=== PATIENT | female | born 1985 | race Caucasian/White ===

== ENCOUNTER 2025-07-11 09:29 | Outpatient (CLI) | payer OTHER, SELFPAY ==
--- NOTE | 2025-07-11 09:36 | ECG_ITS ---
Test Date: 2025-07-11 09:40:32 Measurements Intervals [place] Rate: 80 P: 77 MT: 131 QRS: 83 QRSD: 96 T: 80 QT: 366 QTc: 424 Interpretive Statements SINUS RHYTHM WITH SINUS ARRHYTHMIA INCOMPLETE RIGHT BUNDLE BRANCH BLOCK BASELINE ARTIFACT- II, III, V4-V6 BORDERLINE ECG No previous ECG available for comparison Electronically Signed On 07-11-2025 10:10:15 CDT by Fernando Rodriguez D.O.
== END 2025-07-11 09:30 | disposition home or self-care (01) ==
LOC: ANHSURGERY 09:34
PROVIDERS: Visit Provider Obstetrics & Gynecology
DX: R94.31 Abnormal electrocardiogram [ECG] [EKG] (principal); Z87.891 Personal history of nicotine dependence
CPT/HCPCS: 93005

== ENCOUNTER 2025-07-16 00:37 | Day surgery (SDC) | payer OTHER, SELFPAY ==
[2025-07-09 11:31] VITALS: BMI 19.6
--- NOTE | 2025-07-09 11:35 | SUR.PREOP ---
[facility] has started construction of its new state of the art ER which will open Spring 2026. With this, we anticipate parking may be a challenge for some our surgical patients and families. Parking spaces are limited but are available for all Surgical, obstetrics, and ER patients sharing this lot. If you arrive and find you are having a hard time finding a parking space, please note that we understand the challenges, please drive around the hospital and park near Hospital Entrance 1. When you enter this entrance, you can ask a volunteer to direct or take you back to the surgical waiting area to check in. We appreciate everyone?s understanding of these expected challenges while we build for your future. Report to the Outpatient Waiting Room, entrance under the green pavilion located off [address], at time _6am on date _07/16/25 . Planned Procedure Time: _730am__.? Time changes happen often and if your time is changed the preop area will call you the afternoon before. - You and your visitor will be asked to self-screen and do not enter if you have any COVID symptoms. Please call surgeon if you need to reschedule. - A mask is optional within the hospital at this time. Patients may have clear liquids (water, carbonated beverages, clear teas, apple juice) until 3 hours prior to surgery with a maximum of 20 ounces. - No food from midnight until time of surgery and no smoking, or chewing tobacco (or any form of nicotine). No chewing gum, candy or mints. Take only the following medications with a SIP of water on the morning of surgery: ____None___ DO NOT STOP ANY OF YOUR OTHER PRESCRIPTION MEDICATIONS PRIOR TO SURGERY EXCEPT THE FOLLOWING Hold all vitamins and supplements for 3 days per anesthesiologist. Medications to discontinue per physician ___Hold Tirzepatite for 10 days prior- last dose 06/29/25_. Date to take last dose of vitamins is 07/12/25. Please no make-up, nail greenlandic, hairspray, perfume, deodorant, or body powder the day of surgery.? No jewelry (including any body piercings) or valuables the day of surgery, leave them at home.? Please take a shower or bath the night before, or the morning of, surgery with an antibacterial soap.? Wear comfortable, loose fitting clothing.? Children are encouraged to wear pajamas. - Jewelry must be removed prior to entering the operating room.? Rings and piercings that are not removed may be cut off. - The hospital will not accept responsibility for valuables.? - Please leave all valuables, including medications, at home the day of surgery. If you are going home after surgery, a licensed ross carrier driver must drive you home.? - NO public transportation without another adult if you receive anesthesia. - We recommend that an adult stay with you for 24 hours following discharge. - We also recommend that you do not drive, make important decision, drink alcoholic beverages, or take any drugs that were not prescribed by your health care provider for at least 24 hours after your discharge time. Follow any additional instructions given to you from your surgeon. Telephone instructions given to Kimberly and asked if any additional questions and then verbalized understanding. Patient advised to call surgeon office or pre surgery nurse liaison [phone] if any additional questions.
[2025-07-16] VITALS (11 sets, daily range): BP systolic 95–127; BP diastolic 49–86; PULSE 60–90; RESP 13–20; TEMP 36.3–36.7; O2SAT 99–100
--- OUTSIDE RECORDS SUMMARY | 2025-07-16 00:41 | XMS_ITS | Data Portability ---
Author Organization [facility] [place] Address [address] [place] [address] Assessment No assessment recorded. Plan of Treatment Reminders Order Date Submit Date Provider Last Modified By Organization Details Last Modified Time Details Appointments SURG Diagnosti c Lap 2024 07:30A Celsa LAMB MD Not available Not available Not available Lab CBC w/ auto diff 2024 025 [facility] (Lab), [address], [place], [address], 12/26/2024 15:23:45 CMP, serum or plasma 2024 025 [facility] (Lab), [address], [place], [address], 12/26/2024 15:23:46 lipid panel, blood 2024 025 [facility] (Lab), [address], [place], [address], 12/26/2024 15:23:46 TSH, serum or plasma 2024 025 [facility] (Lab), [address], [place], [address], 12/26/2024 15:23:47 25-hydrox yvitamin D2 + 25-hydrox yvitamin D3, QN, serum or plasma 2024 025 [facility] (Lab), [address], [place], [address], 12/26/2024 15:23:49 dhea-sulf ate, serum 2024 025 [facility] (Lab), [address], [place], [address], 12/26/2024 15:23:46 estradiol , serum 2024 025 [facility] (Lab), [address], [place], [address], 12/26/2024 15:23:47 FSH (follicle -stimulat ing hormone), serum 2024 025 [facility] (Lab), [address] [place], [address], 12/26/2024 15:23:49 lh (luteiniz ing hormone), serum 2024 025 [facility] (Lab), [address], [place], [address], 12/26/2024 15:23:48 progester one, serum 2024 025 [facility] (Lab), [address], [place], [address], 12/26/2024 15:23:48 prolactin , serum 2024 025 [facility] (Lab), [address] [place], [address], 12/26/2024 15:23:48 shbg (sex hormone-b inding globulin) , serum 2024 025 [facility] (Lab), [address] [place], [address], 12/26/2024 15:23:47 testoster one free/test osterone total, ratio, serum 2024 025 [facility] (Lab), [address], [place], [address], 12/26/2024 15:23:49 test, urine 2024 025 [facility], [address], [address], [place], [address], 12/23/2024 22:16:54 Referral None recorded. Procedures None recorded. Surgeries laparosco py, diagnosti c (SURG) 2024 025 [id number], [address], [place], [address], 06/11/2025 09:24:33 Imaging US, pelvis 2024 [address]25 [address], [address], [place], [address], 12/15/2024 10:55:25 US, transvagi nal 2024 025 [address], [address], [place], [address], 12/15/2024 10:55:25 US, pelvis, complete 2024 [address], [address], [place], [address], 12/25/2024 15:36:17 MAMMO, screening , digital, bilateral 2024 025 [facility], [address], [facility], [place], [address], 04/11/2025 04:01:56 US, pelvis [address], [address], [place], [address], 10/25/2023 21:05:54 US, transvagi nal 2023 024 [email or web address] [place], [address], [address], [place], [address], 10/25/2023 21:05:54 Medication Orders None recorded. Patient TargetsNo targets recorded. Patient InstructionsNo instructions recorded. Reason for Referral None Reported. Results Created Date Observation Date Name Description Value Unit Range Abnormal Flag Note LastModifiedBy Organization Detail LastModifiedTime 12/13/1912/12/2024 IMAGE GUIDE D PAP AND HPV REGAR DLESS image guided Pap, HPV regardless of Pap result SEE RESULT S BELOW CASE REPOR T: Cytol ogy Gynec ologi max Repor t Case: [id number] Autho sakshi geovanna Provi hazel: Bisi Ferreira NP Colle cted: 12/12 1325 Order ing Locat ion: [place] Patho logy Recei chente: 12/13 0151 First Veena n: Maliha [place] ret CT Speci men: Veena deleon Pap - Image d, Cervi x STATE MENT OF ADEQU ACY: Satis facto ry for evalu ation Trans forma tion zone compo nent prese nt ----- ----- ----- ----- ----- ----- ----- ----- ----- ----- ----- ----- ----- ----- ----- ----- ----- ---- FINAL DIAGN OSIS: Negat guy for Intra epith elial Manas garza or Ronny jennings (NIL) . Elect joya santos d by WIL Reyna ret on 2024 at 1321 CDT ----- ----- ----- ----- ----- ----- ----- ----- ----- ----- ----- ----- ----- ----- ----- ----- ----- ---- HPV RESUL TS: HPV mRNA E6/E7 : No HPV mRNA Detec lyubov NOTE: This high risk HPV mRNA assay detec ts fourt een high- risk HPV types (16, 18, 31, 33, 35, 39, 45, 51, 52, 56, 58, 59, 66, 68) witho ut diffe renti ation . COMME NT: This speci men was revie wed by a Cytot echno logis t and/o r Patho logis t (as indic ated in this repor t) after evalu ation using the Thinp rep Imagi ng Syste m. CLINI MAX INFOR MATIO N: Menst rual Statu s: LMP (if appli cable ): Clini max Histo ry/Pr eviou s Pap: Type of Neopl sukh (if appli cable ): Signi fican t Clini max Findi ngs: Other Histo ry: Hormo marty (if appli cable ): PAP EDUCA GERSON L NOTE: The Pap Test is a scree adrienne test with an inher ent false negat guy rate. Liqui d-bas ed sampl ing may decre ase, but will not elimi myles, false negat guy resul ts. A negat guy resul t does not precl ude the prese nce and/o r devel opmen t of disea se, since the prese nce of abnor mal cells in the sampl e depen ds on the locat ion of the lesio n and sampl ing techn ique. Grabiel nued regul ar scree adrienne is the best metho d of cance r preve ntion . If repor lyubov cytol ogic findi ng do not corre late with physi max and/o r histo rical findi ngs, furth er inves tigat ion is recom ariadna d, as clinisael hicks nted. Not Available [facility] (Lab) [address], [place], [address], 12/17/2024 14:25:38 12/20/19 25 12/19/2024 CBC W/DIF F WBC 9.4 10'3/ uL 3.5-10 .5 Not Available [facility] (Lab) [address], [place], [address], 12/26/2024 15:23:45 12/20/19 25 12/19/2024 CBC W/DIF F RBC 4.08 10'6/ uL (based on docume nted legal sex) 3.80-5 .20 Not Available [facility] (Lab) [address], [place], [address], 12/26/2024 15:23:45 12/20/19 25 12/19/2024 CBC W/DIF F HGB 13.2 g/dL (based on docume nted legal sex) 11.6-1 5.4 Not Available [facility] (Lab) [address], [place], [address], 12/26/2024 15:23:45 12/20/19 25 12/19/2024 CBC W/DIF F HCT 37.9 % (based on docume nted legal sex) 34.0-4 5.0 Not Available [facility] (Lab) [address], [place], [address], 12/26/2024 15:23:45 12/20/19 25 12/19/2024 CBC W/DIF F MCV 92.9 fL 80.0-9 9.0 Not Available [facility] (Lab) [address], [place], [address], 12/26/2024 15:23:45 12/20/19 25 12/19/2024 CBC W/DIF F MCH 32.4 pg 27.0-3 4.0 Not Available [facility] (Lab) [address], [place], [address], 12/26/2024 15:23:45 12/20/19 25 12/19/2024 CBC W/DIF F MCHC 34.8 g/dL 32.0-3 5.5 Not Available [facility] (Lab) [address], [place], [address], 12/26/2024 15:23:45 12/20/19 25 12/19/2024 CBC W/DIF F RDW 12.6 % 11.0-1 5.0 Not Available [facility] (Lab) [address], [place], [address], 12/26/2024 15:23:45 12/20/19 25 12/19/2024 CBC W/DIF F plt 239 10'3/ uL 150-40 0 Not Available [facility] (Lab) [address], [place], [address], 12/26/2024 15:23:45 12/20/19 25 12/19/2024 CBC W/DIF F MPV 11.6 fL 8.8-12 .1 Not Available [facility] (Lab) [address], [place], [address], 12/26/2024 15:23:45 12/20/19 25 12/19/2024 CBC W/DIF F neutrophils 61.5 % 34.0-7 3.0 Not Available [facility] (Lab) [address], [place], [address], 12/26/2024 15:23:45 12/20/19 25 12/19/2024 CBC W/DIF F lymphocytes 29.1 % 15.0-5 0.0 Not Available [facility] (Lab) [address], [place], [address], 12/26/2024 15:23:45 12/20/19 25 12/19/2024 CBC W/DIF F monocytes 5.6 % 1.0-15 .0 Not Available [facility] (Lab) [address], [place], [address], 12/26/2024 15:23:45 12/20/19 25 12/19/2024 CBC W/DIF F eosinophils 3.1 % 0.0-8. 0 Not Available [facility] (Lab) [address], [place], [address], 12/26/2024 15:23:45 12/20/19 25 12/19/2024 CBC W/DIF F basophils 0.6 % 0.0-2. 0 Not Available [facility] (Lab) [address], [place], [address], 12/26/2024 15:23:45 12/20/19 25 12/19/2024 CBC W/DIF F immature granulocytes 0.1 % no define d refere nce range Immat ure Granu locyt es (IG) repre sents autom ated enume ratio n of Metam yeloc ytes, Myelo cytes and Promy elocy dallin when IG is < 5%. Blast s are not inclu ded in IG and repor lyubov separ ately if prese nt. Not Available [facility] (Lab) [address], [place], [address], 12/26/2024 15:23:45 12/20/19 25 12/19/2024 CBC W/DIF F absolute neutrophils 5.8 10'3/ uL 1.5-8. 0 Not Available [facility] (Lab) [address], [place], [address], 12/26/2024 15:23:45 12/20/19 25 12/19/2024 CBC W/DIF F absolute lymphocytes 2.7 10'3/ uL 1.0-4. 0 Not Available [facility] (Lab) [address], [place], [address], 12/26/2024 15:23:45 12/20/19 25 12/19/2024 CBC W/DIF F absolute monocytes 0.5 10'3/ uL 0.2-1. 0 Not Available [facility] (Lab) [address], [place], [address], 12/26/2024 15:23:45 12/20/19 25 12/19/2024 CBC W/DIF F absolute eosinophils 0.3 10'3/ uL 0.0-0. 6 Not Available [facility] (Lab) [address], [place], [address], 12/26/2024 15:23:45 12/20/19 25 12/19/2024 CBC W/DIF F absolute basophils 0.1 10'3/ uL 0.0-0. 3 Not Available [facility] (Lab) [address], [place], [address], 12/26/2024 15:23:45 12/20/19 25 12/19/2024 CBC W/DIF F absolute immature granulocytes 0.0 10'3/ uL 0.00-0 .10 Refer ence range s for nonbi nary/ inter sex or unspe cifie d gende r patie nts have not been estab lishe d. Pleas e refer to the [facility] for range s estab lishe d for cisge nder patie nts and evalu ate in the clini max johan xt of the indiv idual patie nt: https ://taina lee book. nm.or g/gen derx Not Available [facility] (Lab) [address], [place], [address], 12/26/2024 15:23:45 12/20/19 25 12/19/2024 DHEA SULFA TE DHEA-sulfate 137 ug/dL Femal e Range s Age(y ) Range (ug/d L) 10-15 34-28 0 15-20 65-36 8 20-25 148-4 07 25-35 99-34 0 35-45 61-33 7 45-55 35-25 6 55-65 19-20 5 65-75 9-246 > 75 12-15 4 Not Available [facility] (Lab) [address], [place], [address], 12/26/2024 15:23:46 12/20/19 25 12/19/2024 CMP(C OMPRE HENSI VE METAB OLIC PANEL ) sodium 138 mmol/ L 133-14 6 Not Available [facility] (Lab) [address], [place], [address], 12/26/2024 15:23:46 12/20/19 25 12/19/2024 CMP(C OMPRE HENSI VE METAB OLIC PANEL ) potassium 3.4 mmol/ L 3.5-5. 1 low Not Available [facility] (Lab) [address] [facility], [place], [address], 12/26/2024 15:23:46 12/20/19 25 12/19/2024 CMP(C OMPRE HENSI VE METAB OLIC PANEL ) chloride 103 mmol/ L 98-107 Not Available [facility] (Lab) [address] [facility], [place], [address], 12/26/2024 15:23:46 12/20/19 25 12/19/2024 CMP(C OMPRE HENSI VE METAB OLIC PANEL ) carbon dioxide 26 mmol/ L 21-31 Not Available [facility] (Lab) [address] [facility], [place], [address], 12/26/2024 15:23:46 12/20/19 25 12/19/2024 CMP(C OMPRE HENSI VE METAB OLIC PANEL ) anion gap 9 mmol/ L 4-13 Not Available [facility] (Lab) [address] [facility], [place], [address], 12/26/2024 15:23:46 12/20/19 25 12/19/2024 CMP(C OMPRE HENSI VE METAB OLIC PANEL ) blood urea nitrogen 9 mg/dL 7-25 Not Available [facility] (Lab) [address] [facility], [place], [address], 12/26/2024 15:23:46 12/20/19 25 12/19/2024 CMP(C OMPRE HENSI VE METAB OLIC PANEL ) creatinine 0.57 mg/dL 0.60-1 .30 low Not Available [facility] (Lab) [address] [facility], [place], [address], 12/26/2024 15:23:46 12/20/19 25 12/19/2024 CMP(C OMPRE HENSI VE METAB OLIC PANEL ) egfrcr (CKD-epi 2020) >90 mL/mi n/1.7 3_m2 >=60 Not Available [facility] (Lab) [address] [facility], [place], [address], 12/26/2024 15:23:46 12/20/19 25 12/19/2024 CMP(C OMPRE HENSI VE METAB OLIC PANEL ) calcium 9.3 mg/dL 8.3-10 .5 Not Available [facility] (Lab) [address] [facility], [place], [address], 12/26/2024 15:23:46 12/20/19 25 12/19/2024 CMP(C OMPRE HENSI VE METAB OLIC PANEL ) glucose 66 mg/dL 70-100 low Not Available [facility] (Lab) [address] [facility], [place], [address], 12/26/2024 15:23:46 12/20/19 25 12/19/2024 CMP(C OMPRE HENSI VE METAB OLIC PANEL ) protein, total 6.3 g/dL 6.4-8. 3 low Not Available [facility] (Lab) [address] [facility], [place], [address], 12/26/2024 15:23:46 12/20/19 25 12/19/2024 CMP(C OMPRE HENSI VE METAB OLIC PANEL ) albumin 4.4 g/dL 3.5-5. 0 Not Available [facility] (Lab) [address] [facility], [place], [address], 12/26/2024 15:23:46 12/20/19 25 12/19/2024 CMP(C OMPRE HENSI VE METAB OLIC PANEL ) ALT 27 units /L 9-43 Not Available [facility] (Lab) [address] [facility], [place], [address], 12/26/2024 15:23:46 12/20/19 25 12/19/2024 CMP(C OMPRE HENSI VE METAB OLIC PANEL ) alkaline phosphatase 40 units /L 34-104 Not Available [facility] (Lab) [address] [facility], [place], [address], 12/26/2024 15:23:46 12/20/19 25 12/19/2024 CMP(C OMPRE HENSI VE METAB OLIC PANEL ) AST 16 units /L 13-39 Not Available [facility] (Lab) [address] [facility], [place], [address], 12/26/2024 15:23:46 12/20/19 25 12/19/2024 CMP(C OMPRE HENSI VE METAB OLIC PANEL ) bilirubin, total 0.5 mg/dL 0.2-1. 2 Not Available [facility] (Lab) [address] [facility], [place], [address], 12/26/2024 15:23:46 12/20/19 25 12/19/2024 LIPID PANEL ,AMA (LDL- CALC) total cholesterol 140 mg/dL 0-199 Not Available [facility] (Lab) [address] [place], [address], 12/26/2024 15:23:46 12/20/19 25 12/19/2024 LIPID PANEL ,AMA (LDL- CALC) triglyceride s 40 mg/dL 0-150 NCEP Refer ence Value s for Trigl yceri thom: Tash l: <150 mg/dL Borde rline High: 150 - 199 mg/dL High: 200 - 499 mg/dL Very High: >/= 500 mg/dL Not Available [facility] (Lab) [address] [place], [address], 12/26/2024 15:23:46 12/20/19 25 12/19/2024 LIPID PANEL ,AMA (LDL- CALC) HDL cholesterol 64 mg/dL >40 Not Available [facility] (Lab) [address] [place], [address], 12/26/2024 15:23:46 12/20/1912/19/2024 LIPID PANEL ,AMA (LDL- CALC) LDL cholesterol 65 mg/dL 0-99 Cutof f value s recom ariadna d by the Natio nal Anila stero l Educa tion Progr am: HELEN ABLE: Anila stero l <200 mg/dL LDL <100 mg/dL BORDE RLINE : Anila stero l 200-2 39 mg/dL LDL 101-1 59 mg/dL HIGHE R RISK: Anila stero l >240 mg/dL LDL >160 mg/dL , HDL <40 mg/dL Not Available [facility] (Lab) [address] [facility], [place], [address], 12/26/2024 15:23:46 12/20/1912/19/2024 LIPID PANEL ,AMA (LDL- CALC) non-HDL cholesterol 76 mg/dL no refere nce range A reaso nable goal for non-H DL anila stero l is one that is 30 mg/dL highe r than the LDL anila stero l goal. Not Available [facility] (Lab) [address] [facility], [place], [address], 12/26/2024 15:23:46 12/20/1912/19/2024 LIPID PANEL ,AMA (LDL- CALC) chol/HDL ratio 2.2 . 0.0-5. 0 On January 25, 2023, [facility] labor atori madina finch ed the equat ion for calcu latin g estim ated low-d ensit y lipop rotei n-cho leste rol (LDL- C) from the Fried kathy equat ion to the Joi garza/Gayla argueta equat ion. This new equat ion is only valid for lipid panel s with trigl yceri thom < 400 mg/dL . Pericoi es have demon strat ed that this new equat ion will impro ve the accur acy of LDL-C , espec ially in scena tang when LDL-C arvind ntrat ions are relat ively low (< 100 mg/dL ), trigl yceri thom are eleva lyubov, or patie nt is non-f astin g. Refer ences : - Albert Simmons, Jarvis Milligan , Brooks waite, Ayo Schuler, Ayo wood, Nate fajardo , and Umesh Britt . 2013. Comp ariso n of a Novel Metho d vs the Fried kathy Equat ion for Estim ating Low-D ensit y Lipop rotei n Anila stero l Level s from the Stand susana Lipid Profi le. [place]: The Journ al of the Ameri can Medic al Assoc iatio n 310 (19): 2060- . - Sondra ulrich V, Clarice J, Annel ar A, Keith M, Remy ngo R, Darryl ulrich E, Evan fajardo RS, Balwinder SR, Joi garza SS. Fast ing Versu s Nonfa sting and Low-D ensit y Lipop rotei n Anila stero l Accur acy. Circu latio n. 2017Oct 04;137 (1):1 0-19. Not Available [facility] (Lab) [address] [facility], [place], [address], 12/26/2024 15:23:46 12/20/19 25 12/19/2024 TSH, REFLE X FREE T4 TSH 1.37 uIU/m L 0.30-5 .33 Not Available [facility] (Lab) [address] [place], [address], 12/26/2024 15:23:47 12/20/19 25 12/19/2024 HUMAN SEX HORMO NE FABY NG GLOBU KAYLEIGH sex hormone binding globulin 106.9 nmole s/L 18.2-1 35.5 Not Available [facility] (Lab) [address] [place], [address], 12/26/2024 15:23:47 12/20/19 25 12/19/2024 ESTRA DIOL estradiol 278.0 pg/mL This assay was perfo rmed using [employer] ratio n reage nts and test kits. Value s obtai mireille with other assay metho ds or kits canno t be used inter finch eably . Femal e Estra diol Range s: Folli cular phase 12.4- 233 pg/mL Ovula tion phase 41.0- 398 pg/mL Lutea l phase 22.3- 341 pg/mL Postm enopa usal <5-13 8 pg/mL Healt hy Pregn ant Women 1st Trime ster 154-3 243 pg/mL 2nd Trime ster 1561- 18058 pg/mL 3rd Trime ster 8525- >3000 0 pg/mL Not Available [facility] (Lab) [address] [place], [address], 12/26/2024 15:23:47 12/20/19 25 12/19/2024 PROLA CTIN prolactin, total 10.20 NG/mL 4.79-2 3.30 This assay was perfo rmed using [employer] ratio n reage nts and test kits. Value s obtai mireille with other assay metho ds or kits canno t be used inter [facility] . Not Available [facility] (Lab) [address] [place], [address], 12/26/2024 15:23:48 12/20/19 25 12/19/2024 PROGE STERO NE progesterone 0.58 NG/mL This assay was perfo rmed using [employer] ratio n reage nts and test kits. Value s obtai mireille with other assay metho ds or kits canno t be used inter [facility] . Femal e Proge stero ne Range s: Folli cular phase 0.06- 0.89 ng/mL Ovula tion phase 0.12- 12.00 ng/mL Lutea l phase 1.83- 23.90 ng/mL Postm enopa usal <0.05 -0.13 ng/mL Healt hy Pregn ant Women 1st Trime ster 11.0- 44.30 2nd Trime ster 25.40 -83.3 0 3rd Trime ster 58.70 -214. 00 Not Available [facility] (Lab) [address] [place], [address], 12/26/2024 15:23:48 12/20/19 25 12/19/2024 LH (LUTE NIZIN G HORMO NE) LH 11.4 mIU/m L This assay was perfo rmed using [employer] ratio n reage nts and test kits. Value s obtai mireille with other assay metho ds or kits canno t be used inter [facility] . Femal es Mid-F ollic ular: 2.4-1 2.6 mIU/m L Mid-C ycle: 14.0- 95.6 mIU/m L Mid-L uteal : 1.0-1 1.4 mIU/m L Postm enopa use: 7.7-5 8.5 mIU/m L Not Available [facility] (Lab) [address] [place], [address], 12/26/2024 15:23:48 12/20/19 25 12/19/2024 FSH FSH 4.6 mIU/m L This assay was perfo rmed using [employer] ratio n reage nts and test kits. Value s obtai mireille with other assay metho ds or kits canno t be used inter [facility] . Femal es Folli cular : 3.5-1 2.5 mIU/m L Ovula tion: 4.7-2 1.5 mIU/m L Lutea l: 1.7-7 .7 mIU/m L Postm enopa use: 25.8- 134.8 mIU/m L Not Available [facility] (Lab) [address], [place], [address], 12/26/2024 15:23:49 12/20/19 25 12/19/2024 VITAM IN D, 25-OH (TOTA L D2/D3 ) vitamin D, 25-hydroxy, total 39.5 NG/mL 30.0-1 00.0 Sugge stive of Defic iency : <20 ng/mL Sugge stive of Insuf ficie ncy: 20-29 ng/mL Sugge stive of Suffi cienc y: 30-10 0 ng/mL Sugge stive of Toxic ity: >150 ng/mL Not Available [facility] (Lab) [address] [facility], [place], [address], 12/26/2024 15:23:49 12/20/19 25 12/19/2024 TESTO STERO NE, FREE( DIALY SIS) AND TOTAL (LC/M S/MS) testosterone , total 42 NG/dL 2-45 For addit ional jorge koroma e refer to http: //[facility] garza.que stdia gnost ics.c om/fa q/ Total Testo stero neLCM SMSFA Q165 (This link is being provi ded for babak farrell/ educa gerson l purpo ses only. ) This test was devel oped and its giovani tical perfo rmanc e jimmy cteri stics have been deter mined by [employer] [facility] [place]. It has not been clear ed or appro chente by the U.S. Food and Drug Admin istra tion. This assay has been valid ated pursu ant to the CLIA regul ation s and is used for clini max purpo ses. Not Available [facility] (Lab) [address] [facility], [place], [address], 12/26/2024 15:23:49 12/20/19 25 12/19/2024 TESTO STERO NE, FREE( DIALY SIS) AND TOTAL (LC/M S/MS) testosterone , free 3.7 pg/mL 0.1-6. 4 This test was devel oped and its giovani tical perfo rmanc e jimmy cteri stics have been deter mined by [employer] [facility], [place]. It has not been clear ed or appro chente by the U.S. Food and Drug Admin istra tion. This assay has been valid ated pursu ant to the CLIA regul ation s and is used for clini max purpo ses. Perfo rming Organ izati on Babak garza: Site ID: AMD Name: [employer] Santiago parry Addre ss: [id number] [facility] [employer] [place], [place] Direc tor: Floyd Villar MD PhD Not Available [facility] (Lab) [address], [place], [address], 12/26/2024 15:23:49 10/25/19 24 10/25/2023 US, pelvi s No observ ation record ed. [place] [address], [place], [address], 10/25/2023 12:36:52 10/25/19 24 10/25/2023 US, trans vagin al No observ ation record ed. [place] [address], [place], [address], 10/25/2023 12:36:44 10/25/19 24 10/25/2023 US, pelvi s No observ ation record ed. [id number], [place], [address], 10/25/2023 21:15:38 12/14/19 25 12/13/2024 US, pelvi s No observ ation record ed. [facility] [address], [place], [address], 12/13/2024 16:46:05 12/14/19 25 12/13/2024 US, trans vagin al No observ ation record ed. [facility] [address], [place], [address], 12/13/2024 16:46:15 12/14/19 25 12/13/2024 [place], pelvi s No observ ation record ed. [id number], [place], [address], 12/18/2024 10:48:34 Result Notes None recorded. Procedures Surgical History Date Name Laterality Status Provider Name and Address Organization Details Recorded Time 12/13/19 25 Date of Last Pap Smear completed Denise Isaiah [facility] 12/19/2024 14:07:50 12/28/19 14 section completed [facility] 09/06/2023 09:21:17 08/22/20 07 section completed [facility] 09/06/2023 09:21:01 10/16/19 05 section completed [facility] 09/06/2023 09:20:53 10/03/19 05 Tonsillectomy completed [facility] 09/06/2023 11:52:37 Imaging Results None recorded. Procedure Notes None recorded. Medical Equipment None Reported. Allergies No known drug allergies Medications Name Sig Start Date Stop Date Status Note LastModified by Organization Details LastModified Time Mirena 21 mcg/24 hr (up to 8 years) 52 mg intrauterin e device Take by intrauter ine route. 2018 active Not Available Not Available Not Avai lable amoxicillin 500 mg tablet 09/06 completed Not Available Not Available Not Available cyanocobala min (vit B-12) 1,000 mcg/mL injection solution INJECT 250 MCG SUBCUTANE OUSLY WEEKLY 09/21 completed Not Available Not Available Not Available dextroamphe tamine-amph etamine 20 mg tablet active Not Available Not Available No t Available insulin syringe U-100 with needle 0.3 mL 31 gauge x 02/15 USE DIRECTED 09/21 completed Not Available Not Available Not Available Adderall (20mg) 09/06 completed Not Available Not Available Not Available Cyanacobala min 09/06 completed Not Available Not Available Not Available Mounjaro 5 mg/0.5 mL subcutaneou s pen injector INJECT 5 MG SUBCUTANE OUSLY ONCE A WEEK. FOLLOW UP WEEK 2-3 FOR DOSE ADJUSTMEN T. 12/19 completed Not Available Not Available Not Available Mounjaro 2.5 mg/0.5 mL subcutaneou s pen injector INJECT 1 SYRINGE (2.5 MG) SUBCUTANE OUSLY ONCE A WEEK, FOLLOW UP IN 3 WEEKS FOR DOSAGE ADJUSTMEN T 09/21 completed Not Available Not Available Not Available Kevin 09/06 completed Not Available Not Available Not Available Vitals Date Recorded Body height Body mass index (BMI) Body weight Systolic And Diastolic Provider Name and Address Organization Details Last Updated DateTime 10/27/2023 156.21 cm 18 kg/m2 11935.46 g 96/67 mm[Hg] Ricarda Chen [facility] 10/27/2023 11:52:07 Date Recorded Body height Body mass index (BMI) Body weight Systolic And Diastolic Provider Name and Address Organization Details Last Updated DateTime 12/12/2024 156.21 cm 19.5 kg/m2 22605.2 g 114/79 mm[Hg] BLAS Cohen [facility] 12/12/2024 12:03:28 Date Recorded Body height Body mass index (BMI) Body weight Systolic And Diastolic Provider Name and Address Organization Details Last Updated DateTime 12/19/2024 156.21 cm 19.5 kg/m2 89370.2 g 137/87 mm[Hg] Denise Colon [facility] 12/19/2024 14:07:08 Social History Question Answer Notes LastModified by Organizat ion Details LastModified Time Tobacco Smoking Status Former [facility] 10/27/2023 11:34:47 Do You Have An Advance Directive? No [email or web address] Information n ot available 12/12/2024 How Many Years Have You Consumed Alcohol? 18 [email or web address] Information not available 09/06/2023 Are You Blind Or Do You Have Difficulty Seeing? No [email or web address] Information n ot available 09/06/2023 What Is Your Level Of Caffeine Consumption? Moderate [email or web address] Information not available 09/06/2023 How Much Tobacco Do You Chew? None [email or web address] Information not available 09/06/2023 In The 14 Days Before Symptom Onset, Have You Had Close Contact With A Laboratory-confirm ed COVID-19 While That Case Was Ill? No [email or web address] Information n ot available 09/06/2023 In The 14 Days Before Symptom Onset, Have You Had Close Contact With A Person Who Is Under Investigation For COVID-19 While That Person Was Ill? No [email or web address] Information not available 09/06/2023 Have You Been To An Area Known To Be High Risk For COVID-19? No [email or web address] Information not available 09/06/2023 Are You Deaf Or Do You Have Serious Difficulty Hearing? No [email or web address] Information not available 09/06/2023 What Type Of Diet Are You Following? SPECIFIC [email or web address] Information n ot available 09/06/2023 What Is The Highest Grade Or Level Of School You Have Completed Or The Highest Degree You Have Received? [id number] [email or web address] Information not available 09/06/2023 Are There Any Guns Present In Your Home? No [email or web address] Information not available 09/06/2023 Have You Ever Been Counseled For Unhealthy Alcohol Use? No [email or web address] Information not available 10/27/2023 Do You Use Protection During Sex? No [email or web address] Information not available 09/06/2023 Do You Use Your Seat Belt Or Car Seat Routinely? Yes [email or web address] Information not available 09/06/2023 Do You Have Smoke And Carbon Monoxide Detectors In Your Home? Yes [email or web address] Information not available 09/06/2023 At What Age Did You Start Smoking Tobacco? 17 [email or web address] Information not available 09/06/2023 How Much Tobacco Do You Smoke? No [email or web address] Information not available 09/06/2023 Do You Use Sunscreen Routinely? Yes Information not available 09/06/2023 How Many Years Have You Smoked Tobacco? 9 [email or web address] Information not available 09/06/2023 Have You Used IV Drugs? No [email or web address] Information not available 09/06/2023 Do You Have Difficulty Walking Or Climbing Stairs? No [email or web address] Information not available 10/27/2023 Sex: Unknown Functional Status Question Answer Note LastModified by Organizat ion Details LastModified Time Do you use any illicit or recreational drugs? No [email or web address] Information not available 09/06/2023 Do you or have you ever used any other forms of tobacco or nicotine? Yes [email or web address] Information not available 10/27/2023 What is your level of alcohol consumption? Occasional [email or web address] Information not available 09/06/2023 Are you able to walk independently without assistance or assistive devices? YESWOREST Information not available 09/06/2023 Are you able to care for yourself independently? Yes [email or web address] Information not available 10/27/2023 What is your occupation? Homemaker [email or web address] Information not available 09/06/2023 Do you have difficulty dressing, bathing, grooming, or toileting? No [email or web address] Information not available 10/27/2023 Do you or have you ever used e-cigarettes or vape? Former user of electronic cigarettes Information not available 10/27/2023 What is your exercise level? Moderate [email or web address] Information not available 09/06/2023 Mental Status Question Answer Note LastModified by Organization D etails LastModified Time Do you feel stressed (tense, restless, nervous, or anxious, or unable to sleep at night)? [id number] [email or web address] Information not available 09/06/2023 Family History Relationship Description Onset Age of this Age Resolved Age Notes LastModified by Organization Details LastModified Time Mother Depressive disorder [email or web address] Not available 09/06 11:49:13 Mother Malignant neoplasm of cervix uteri [email or web address] Not available 11:49:13 Mother Malignant neoplasm of ovary [email or web address] Not available 09/06 11:49:13 Mother Substance abuse [email or web address] Not available 09/06 11:49:13 Maternal Grandmother Depressive disorder [email or web address] Not available 09/06 11:49:13 Maternal Grandmother Malignant neoplasm of cervix uteri [email or web address] Not available 11:49:13 Brother Depressive disorder [email or web address] Not available 09/06 11:49:13 Brother Substance abuse [email or web address] Not available 09/06 11:49:13 Medical History Condition Response Allergies (Food, seasonal, environmental ) N Other N Drug/Latex Allergies/Reactions N Blood Transfusion N Breast Cancer N Dermatologic Disorders N Lung Disease N Defects or Inherited Disease N Breast Problem N Gestational Diabetes N Hematologic disorders N Anesthesia Complications N History of STI N Deep Vein Thrombosis N Polycystic ovary syndrome N Anxiety Disorder Y Autoimmune disease N Arthritis N Polyps N Infertility N Acid Reflux (GERD) N History of abnormal pap N Cancer N Varicosities N Stroke N Neurologic/Epilepsy N Endometriosis N High Cholesterol N Fibromyalgia N Headaches N Kidney Disease N Heart Problems N Thyroid Problems N Kidney or Bladder Problems N GI Problems N Eating Disorder N Anemia N Art (IVF or FET) N Psychiatric Illness N Ovarian Cancer N Diabetes N Pulmonary (TB, Asthma) N Hepatitis/Liver Disease Y No Past Medical History Y Eczema N Urinary Tract Infection N Abuse/Domestic Violence N Asthma N Trauma/Violence N Depression/ depression N Heart Disease N Pre-Eclampsia N Hypertension N Osteoporosis N Thrombophilias N Gynecological History Statement/Question Response Date of Last Mammogram Date of LMP 10/03/2018 On BCP's at Conception? N N Was last menstrual period normal N STIs/STDs N HPV Vaccine N Current Control Method IUD Age at First Child 19 Date of control 02/08/2019 Sexually Active? Y IUD Menses Monthly N Date of DEXA bone scan Age of first menstrual cycle 10 Date of Last Pap Smear 12/12/2024 Sexual Problems? N Desired Control Method Unknown LMP Unknown N Obstetrics History GPAL:G 3 P 3 0 0 3 Type Value Full Term 3 Living 3 Total 3 Past Encounters Encounter ID Performer Location Encounter Start Date Encounter Closed Date Diagnosis/Indication Diagnosis SNOMED-CT Code Diagnosis ICD10 Code Diagnosis IMO Codes Diagnosis Note [id number] LOIDA Torres [facility] [address] [address] 09/06/2023 11:27:44 09/06/2023 12:31:54 Pain in pelvis 39597054 R10.2 This patient is a 38 -year-old female with pelvic pain. We have agreed to complete the evaluation with pelvic ultrasound . The patient will return after the pelvic ultrasound to discuss those findings and to develop a treatment plan. A comprehens guy history and physical exam was performed today. We spent over 25 minutes face-to-fa ce. The patient was given precaution s. She will contact clinic if pelvic pain increases in frequency or intensity. Also notify clinic of any new symptoms associated with pelvic pain. She does not appear to have an acute pelvic infection today, but was asked to contact us Immediatel y with nausea, vomiting, fever, chills. pelvic u/s scheduledd iscussed longevity of symptoms and recommend MD consult - scheduled u/s f/u with Dr. Herzog ended GI consult as wellWWE scheduled, due for updated pap [id number] Dain Lamb MD [facility] [address] [address] 09/08/2023 12:27:57 09/08/2023 13:40:54 Pain in pelvis 18264011 R10.2 [id number] Dain Lamb MD [facility] [address] [address] 09/12/2023 11:03:18 09/12/2023 12:22:57 Pain in pelvis 49987918 R10.2 8-year-old female presents for pelvic pain. Patient denies a severe suprapubic pain that is exacerbate d by movement, intercours e, routine activities . It affects her activities daily living. Affects her mental health. The pain can last weeks after exam exacerbati on of the pain. It affects her quality life and activities of daily living. Patient has a complex appearance to the right ovary. There was some concern the unusual nature of the ultrasound images the right ovary. Talked about these issues. She also has uterine fibroids. Patient is known to have menorrhagi a when her IUD is not present. Talked about medical treatment options. Patient is not interested in hormonal treatment options for pelvic pain. Diffuse small fibroids not likely to be causing pain however menorrhagi a and is possible have pain. She is had 3 deliveries . There may be scar tissue between this scars and the anterior abdominal wall. We discussed surgical treatment options. She has hysterecto my and bilateral salpingo-o ophorectom y. Discussed hormones. Discussed changes and desire in sense of well-being with removal the ovaries. The patient has a strong family history of cancer that may include ovarian cancer x2. She is considerin g also just the right oophorecto my and diagnostic laparoscop y for pelvic pain. She is going to contact us with her decision. We essentiall y made a decision to perform surgery today. We spent 40 minutes face-to-fa ce. More than 50% was counseling Uterine leiomyoma 596420 05 D25.9 Menorrhagia [id number] N9 2.0 [id number] LOIDA Torres [facility] [address] [address] 09/21/2023 11:03:31 09/21/2023 12:16:03 Gynecologic examination [id number] Z01.419 [facility] - mirena IUD, inserted 02/18/2019p ap updatedde lined need [facility] [facility] order given - schedule after 40 bdayUTD with routine labs/PCP Take Calcium with Vitamin D daily if not receiving in daily diet.It is strongly advised to have an annual flu shot and up can obtain at most pharmacies . If you have not had a TDap shot in the last 10 years you should obtain one as well. Encourage safe sexual practices, to use condoms and limit partners if not already in a monogamous relationsh ip.Do monthly self breast exams.Have mammogram yearly or every other year depending on family history. BRCA testing is now available for patients with strong genetic history of female cancer. If interested contact the office.Eng age in daily exercise of low impact aerobic exercise 45-60 minutes 4-5 times weekly. Avoid tobacco and illicit drugs. This lifestyle behavior pattern will lead to less health conditions and longer life span. If BMI greater than 25 dietary consult advised.Romario danielson received above instructio ns, and questions have been answered. If you have any questions please call or respond to this email.Kathi batista was made aware of the patient portal and may obtain a paper copy of today's plan if desired. Screening for malignant neoplasm of breast 781975708 Z12.39 Cyst of ovary 36415688 N 83.209 continue f/u with Dr. Lamb, precaution s reviewed [id number] Dain Lamb MD [facility] [address] [address] 10/25/2023 11:29:38 10/25/2023 12:51:52 Ultrasound scan abnormal [id number] R93.89 [id number] Dain Lamb MD [facility] [address] [address] 10/27/2023 11:32:30 10/28/2023 08:42:59 Pain in pelvis 80400489 R10.2 This patient is a 38-year-ol d female with longstandi ng pelvic pain. The pain has been present for more than a year. The pain is in the midline and the pelvic area and favoring the left side. She is history of delivery. She states that she can palpate some abnormalit ies in her suprapubic region. She is very thin and that is possible. She has had some ovarian cysts recently. We talked about treatment options in detail. We spent 40 minutes face-to-fa ce. More than 50% was counseling . We agreed to diagnostic laparoscop y. I explained the procedure to her in great detail. We talked about medical treatment options. She is already failed medical treatment with having an IUD for more than 3 years. We will proceed with scheduling the diagnostic laparoscop y. We made a decision to perform surgery. [id number] LOIDA Torres [facility] [address] [address] 12/12/2024 11:56:52 12/12/2024 14:03:12 Gynecologic examination [id number] Z01.419 Z11.51 [facility] - Mirena IUD (inserted 02/18/2019, will 02/18/2027) Pap - done todaySTI screen - declinedMa mmogram - order givenColon cancer screening - n/aRoutine labs - PCPRTC in 1 yr or sooner if needed Suggested Calcium with Vitamin D daily. Patient advised to get an annual flu shot in the fall and she could obtain at local pharmacy. Also to obtain TDap vaccinatio n if you have not had one in the last 10 years. Recommend yearly mammograms . Encouraged monthly self breast exams. Encourage safe sexual practices, to use condoms and limit partners if not already in a monogamous relationsh ip. Engage in regular exercise. Avoid tobacco and illicit drugs. This lifestyle behavior pattern will lead to less health conditions and longer life span. If BMI greater than 25 dietary consult advised. All questions have been answered. Screening for malignant neoplasm of breast 814076177 Z12.39 Chronic pe lvic pain of female 149711170 R10.2 recommende d updated pelvic u/sf/u with to review (previousl y was aneta [facility] diagnostic lap) [id number] Dain Lamb MD [facility] [address] [address] 12/13/2024 12:29:52 12/13/2024 13:18:16 Pain in pelvis 75059988 R10.2 This patient is a 38-year-ol d female with longstandi ng pelvic pain. The pain has been present for more than a year. The pain is in the midline and the pelvic area and favoring the left side. She is history of delivery. She states that she can palpate some abnormalit ies in her suprapubic region. She is very thin and that is possible. She has had some ovarian cysts recently. We talked about treatment options in detail. We spent 40 minutes face-to-fa ce. More than 50% was counseling . We agreed to diagnostic laparoscop y. I explained the procedure to her in great detail. We talked about medical treatment options. She is already failed medical treatment with having an IUD for more than 3 years. We will proceed with scheduling the diagnostic laparoscop y. We made a decision to perform surgery. [id number] Dain Lamb MD [facility] [address] [address] 12/19/2024 13:55:12 12/19/2024 14:36:12 Pain in pelvis 20270983 R10.2 This patient is a 39-year-ol d female who presents for follow-up on pelvic pain. We had decided last year to perform diagnostic laparoscop y for longstandi ng pelvic pain. It was postponed. She continues to have pain. She has pain with movement. Pain with intercours e. She has pain with exercise. It is midline pelvic pain. She has some issues with pain with bowel movement. We discussed general health screening. She would like to do a general health panel. She also has concern about fatigue. We agreed to check her sex hormone panel and thyroid. Spent more than 30 minutes on her care in total. Including documentat ion. Gynecologi c examination [id number] Z01.419 Z11.51 Reduced libido 5107267 R 68.82 Adult heal th examination 416267614 Z00.00 Health Concerns Section Related Observation LastModified by Organization Detai ls LastModified Time None Recorded Concern Status LastModified by Organization Details LastModified Time None Recorded Advance Directives Directive N: Payers Insurance Date Sequence Insurance Name Policy Number Policy Rodriguez Covered Member ID Rodriguez Member ID Guarantor Name 07/13/2025 1 [facility] [id number] Pepe Gutierrez [id number] Galina Gutierrez Notes Date Note Type Note Provider Name and Address Organization Details Recorded Time 10/27/19 24 text/ht ml This patient is a 38-year-old female with longstanding pelvic pain. The pain has been present for more than a year. The pain is in the midline and the pelvic area and favoring the left side. She is history of delivery. She states that she can palpate some abnormalities in her suprapubic region. She is very thin and that is possible. She has had some ovarian cysts recently. We talked about treatment options in detail. We spent 40 minutes [id number]. More than 50% was counseling. We agreed to diagnostic laparoscopy. I explained the procedure to her in great detail. We talked about medical treatment options. She is already failed medical treatment with having an IUD for more than 3 years. We will proceed with scheduling the diagnostic laparoscopy. We made a decision to perform surgery. Dain Lamb MD [address], [place], [address], [facility] 10/27/2023 20:46:14 12/13/19 25 text/ht ml Annual GYNReported by PatientGenitourinary symptomsFor menstrual cycle, patient reportsnormal menses. For urinary symptoms, patient reportsno hematuriaandno incontinence. For vulva, patient reportsno genital lesion. For vagina, patient reportsnormal vaginal discharge.Breast symptomsFor breast, patient reportsno breast pain,no breast lump, andno nipple discharge.ContraceptionFor current contraception, patient reportssatisfied with current contraceptionandintrauterine device (iud)(mirena iud, inserted 02/18/2019).Endocrine symptomsFor sexual complaints, patient reportsno sexual complaints,no pain during intercourse, andnormal libido. For menopausal symptoms, patient reportsno menopausal symptomsandnormal vaginal lubrication.Psychological symptomsFor psychological symptoms, patient reportsno depression,no anxiety, andno pmdd.Preventative measuresFor preventive measures, patient reportsencourage self breast examination,encourage regular exercise,encourage no tobacco use, andencourage regular mammograms starting age 40.39yo wwe [id number] - Mirena IUD, inserted 02/18/2019last pap 2022 - nilm, HPV (-) chronic pelvic since 2013lower pelvic, midline cramping/aching/pressure sensation. Comes and goes, worse with activitywas previously considering a diagnostic lap with LOIDA Garcias [address], [place], [address], [facility] 12/12/2024 13:55:13 12/20/19 25 text/ht ml This patient is a 39-year-old female who presents for follow-up on pelvic pain. We had decided last year to perform diagnostic laparoscopy for longstanding pelvic pain. It was postponed. She continues to have pain. She has pain with movement. Pain with intercourse. She has pain with exercise. It is midline pelvic pain. She has some issues with pain with bowel movement. We discussed general health screening. She would like to do a general health panel. She also has concern about fatigue. We agreed to check her sex hormone panel and thyroid. Spent more than 30 minutes on her care in total. Including documentation. Dain Lamb MD [address], [place], [address], [facility] 12/19/2024 14:35:06 OBGyn Episode Ob Episode Information Episode Created Date Number of Fetuses Patient Bloodtype Patient rh Status Prepregnancy Weight lbs Domestic Partner Domestic Partner Phone Father Name Regional Sales Executive Status 09/06/20 23 1 CLOSED Fetus Data First Name Last Name Admitted to NICU Weight (g) Sex Living Outcome Pediatric Complications Fetus ID Race Codes Race Delivery Type 3373.36 3704 F Full Term [id number] Repeat Willam Calculation Initial Willam Date Initial Exam Date Initial Exam Provider Initial Ultrasound Date Last Menstrual Period Date Ultra Sound Weeks Gestation 0 Eighteen To Twenty Week Willam Update Ultra Sound Date Fundal Height At Umbil Quickening Date Ultra Sound Latest Weeks Gestation Final Willam Confirmed By Final Willam Confirmed Date Final Willam Date Ultra Sound Latest Days Gestation 0 0 Menstrual History Last Menstrual Date Menses Monthly On Bcp Conception Prior Menses Frequency Hcg Plus Date Menarche Onset Age Delivery Information Delivery Date Delivery Type Labor Anesthesia Weeks Gestation Incision Type Labor Labor Length Hrs Delivered By Post Complications Tubal Sterilization Discharge Date Comments 4 38 Discharge Information Feeding Method Contraceptive Method Maternal HG B and HCT Levels Ob Episode Information Episode Created Date Number of Fetuses Patient Bloodtype Patient rh Status Prepregnancy Weight lbs Domestic Partner Domestic Partner Phone Father Name Regional Sales Executive Status 09/06/20 23 1 CLOSED Fetus Data First Name Last Name Admitted to NICU Weight (g) Sex Living Outcome Pediatric Complications Fetus ID Race Codes Race Delivery Type 3458.63 9 M Full Term [id number] Primary Willam Calculation Initial Willam Date Initial Exam Date Initial Exam Provider Initial Ultrasound Date Last Menstrual Period Date Ultra Sound Weeks Gestation 0 Eighteen To Twenty Week Willam Update Ultra Sound Date Fundal Height At Umbil Quickening Date Ultra Sound Latest Weeks Gestation Final Willam Confirmed By Final Willam Confirmed Date Final Willam Date Ultra Sound Latest Days Gestation 0 0 Menstrual History Last Menstrual Date Menses Monthly On Bcp Conception Prior Menses Frequency Hcg Plus Date Menarche Onset Age Delivery Information Delivery Date Delivery Type Labor Anesthesia Weeks Gestation Incision Type Labor Labor Length Hrs Delivered By Post Complications Tubal Sterilization Discharge Date Comments 5 40 Discharge Information Feeding Method Contraceptive Method Maternal HG B and HCT Levels Ob Episode Information Episode Created Date Number of Fetuses Patient Bloodtype Patient rh Status Prepregnancy Weight lbs Domestic Partner Domestic Partner Phone Father Name Regional Sales Executive Status 09/06/20 23 1 CLOSED Fetus Data First Name Last Name Admitted to NICU Weight (g) Sex Living Outcome Pediatric Complications Fetus ID Race Codes Race Delivery Type 2834.95 M Full Term [id number] Repeat Willam Calculation Initial Willam Date Initial Exam Date Initial Exam Provider Initial Ultrasound Date Last Menstrual Period Date Ultra Sound Weeks Gestation 0 Eighteen To Twenty Week Willam Update Ultra Sound Date Fundal Height At Umbil Quickening Date Ultra Sound Latest Weeks Gestation Final Willam Confirmed By Final Willam Confirmed Date Final Willam Date Ultra Sound Latest Days Gestation 0 0 Menstrual History Last Menstrual Date Menses Monthly On Bcp Conception Prior Menses Frequency Hcg Plus Date Menarche Onset Age Delivery Information Delivery Date Delivery Type Labor Anesthesia Weeks Gestation Incision Type Labor Labor Length Hrs Delivered By Post Complications Tubal Sterilization Discharge Date Comments 7 38 Discharge Information Feeding Method Contraceptive Method Maternal HG B and HCT Levels
--- OUTSIDE RECORDS SUMMARY | 2025-07-16 00:41 | XMS_ITS ---
Author Organization Unknown ENCOUNTERS Encounter Performer Location Date Diagnosis Diagnosis Status Outpatient [place] [address] [place] [address] [id number] OSBALDO *Note: Encounters from your own facility or health system may be excluded. Allergies, Adverse Reactions, Alerts Allergen Type Severity Identification Date Medications Name Date Quantity Days Supplied GPI Number
--- OUTSIDE RECORDS SUMMARY | 2025-07-16 00:41 | XMS_ITS | Clinical Summary ---
Author Organization [facility] [address] Address [address] [place] [address] Phone Care Team Providers Care Industrial Roofer Helper Name Role Phone No, Physician Primary Care Provider [phone] Allergies No known active allergies Medications dextroamphetami ne-amphetamine XR (ADDERALL XR) 25 mg 24 hr capsule Take 25 mg by mouth every morning Active levonorgestrel (MIRENA) IUD 1 each by intrauterine route once Active Active Problems Problem Noted Date Diagnosed Date ADD (attention deficit disorder) 11/08/2019 Surgical History Surgery Date Site/Laterality Comments SECTION 10/03/2004 - 10/02/2005 REPEAT SECTION 10/03/2006 - 10/02/2007 REPEAT SECTION 10/03/2013 - 10/02/2014 Family History Medical History Relation Name Comments Cancer Maternal Grandmother 'female ' Diabetes Maternal Grandmother Lung cancer Maternal Grandmother Arthritis Mother Bipolar disorder Mother Cervical cancer Mother Depression Mother Diabetes Mother Relation Name Status Comments Maternal Grandmother Mother Social History Tobacco Use Types Packs/Day Years Used Date Smoking Tobacco: Former Cigarettes 0.1 11 2 002 - 2013 Smokeless Tobacco: Never Alcohol Use Standard Drinks/Week Comments Yes 1 (1 standard drink = 0.6 oz pur e alcohol) 1-2 x month Personal Safety Answer Date Recorded Getting School Help Needed Not on file 12/16 Comments No Sex and Gender Information Value Date Recorded Sex Assigned at Not on file Legal Sex Female 11:57 AM BULKER Gender Identity Female 11/01/2019 7:29 AM BULKER Sexual Orientation Straight 11/01/2019 7: 29 AM BULKER Occupation Industry Job Start Date Job End Date N/A Not on file Not on file Not on file Obstetrics History Para Term AB IAB SAB Ectopic Multiple Livin g Live Births 3 3 3 0 0 3 Date Outcome GA Total Labor Labor/2nd/3rd Weight Sex Type Anes PTL Gladis A1 A5 Name Clin 2004 Term CS-LTra nv 2006 Term CS-LTra nv 2013 Term CS-LTra nv Last Filed Vital Signs Vital Sign Reading Time Taken Comments Blood Pressure 110/80 11/22/2019 2:21 PM BULKER Pulse - - Temperature - - Respiratory Rate - - Oxygen Saturation - - Inhaled Oxygen Concentration - - Weight 56.7 kg (125 lb) 11/22/2019 2:21 PM BULKER Height 156.8 cm (5' 1.75) 11/08/2019 1:31 PM CS T Body Mass Index 23.05 11/08/2019 1:31 PM BULKER Plan of Treatment Not on file Insurance [facility] CMR Care Teams Industrial Roofer Helper Relationship Specialty Start Date End Date No, Physician PCP - General 11/08/19
[2025-07-16] MEDS: ACETAMINOPHEN 500 MG TABLET 1000 MG PO (06:20)
[2025-07-16] MEDS: KETOROLAC 15 MG/ML VIAL (*BKC) IV PUSH (06:25)
[2025-07-16] MEDS: LACTATED RINGERS 1,000 ML 30 ML IV CONT ×2 (06:25→09:05)
--- NOTE | 2025-07-16 07:00 | P.PNAN_ITS ---
Anes - Initial Pre Proc Eval Procedure: Operation Date: 07/16/25 07:30 Proposed Procedures p Diagnostic Laparoscopy - Dain Lamb MD Date/Time: 07/16/25 07:00 Surgeon: Dain Lamb MD Pre Op Diagnosis: Pelvic Pain Patient Data Age: 40 Gender: F Height: 1.55 m Weight: 46.8 kg Last Vital Signs Temp 36.7 C 07/16/25 06:10 Pulse 87 07/16/25 06:10 Resp 16 07/16/25 06:10 BP 104/49 L 07/16/25 06:10 Pulse Ox 100 07/16/25 06:10 O2 Del Method Room Air 07/16/25 06:10 Allergies Allergy/AdvReac Type Severity Reaction Status Date / Time No Known Allergies Allergy Verified 07/09/25 11:49 Home Medications ?Medication ?Instructions ?Recorded ?Confirmed ?Type cyanocobalamin (vitamin B-12) 100 mcg subcut MONTHLY 1 07/16/25 History 1,000 mcg/mL injection solution dextroamphetamine-amphetamine 20 20 mg PO DAILY 07/16/25 History mg tablet tirzepatide 5 mg/0.5 mL 5 mg subcut WEEKLY 07/09/25 07/16/25 History subcutaneous pen injector (Mounjaro) Patient hx anesthesia problems: none Family hx anesthesia problems: none Results Review: All pre-operative results and documents have been reviewed as part of the pre- operative evaluation. [facility] Family History Family History (Updated 04/30/16 @ 23:19 by DOCTOR UNKNOWN) Father Family history of thyroid disease Mother Family history of diabetes mellitus in first degree relative Grandparent Diabetes mellitus Social History Social History Smoking packs per day: 1 Smoking cigarettes per day: 20.0 Years smoked: 20 Smoking pack-years: 20.00 Smoking status: Former smoker Tobacco type: cigarettes Alcohol intake: never Alcohol use details: sometimes it one or two or sometimes it's too many. But monthly only. Substance use: former Living arrangements: with family Spiritual care concerns: No Anes - Eval Final PreProcedure Day of Procedure 07/16/25 07:00 Patient weight: normal Heart: regular rate and rhythm Lungs: clear to auscultation Airway: Mallampati scale class II Neurological: alert and oriented Last oral intake: >/= 8 hours ASA classification: II Emergent: no Anesthetic plan: proceed Anesthesia type and monitoring: general ETT and standard monitoring Results Review: All pre-operative results and documents have been reviewed as part of the pre- operative evaluation. Informed Consent: The patient's anesthetic plan and its attendant risks and benefits were discussed with the patient/family/POA. Questions were solicited and answers provided to the satisfaction of the patient/family/POA.
--- NOTE | 2025-07-16 07:18 | PM.IMHP ---
H&P: HPI History of Present Illness Date/Time: 07/16/25 07:18 Chief Complaint: Pelvic pain Narrative: This patient is a 40-year-old female with pelvic pain. We agreed to perform diagnostic laparoscopy. She understands risks, benefits, and alternatives. She has completed informed consent process is ready to proceed The patient understands the details of the procedure. The procedure has been explained in detail. She understands the risks. She understands that injuries may occur that result in hospitalization, more surgery, and severe illness. She understands risk of hemorrhage and infection. She denies any chest pain or shortness of breath. She denies any nausea, vomiting, fever, chills. Review of Systems Review of Systems: All systems reviewed & are unremarkable except as noted in HPI and below Constitutional: Constitutional: Denies chills, Denies fatigue, Denies fever(s) and Denies weakness Eyes: Eyes: Denies blurry vision, Denies change in vision, Denies loss of peripheral vision, Denies loss of vision, Denies other visual disturbances and Denies eye pain ENT: Denies vertigo, Denies dizziness, Denies hearing loss, Denies mouth pain, Denies nasal obstruction, Denies neck mass and Denies neck pain Cardiovascular: Cardiovascular: Denies chest pain, Denies diaphoresis, Denies syncope, Denies leg edema and Denies dyspnea Respiratory: Respiratory: Denies chest congestion, Denies cough, Denies hemoptysis, Denies dyspnea and Denies wheezing Gastrointestinal: Gastrointestinal: Denies abdominal pain, Denies constipation, Denies diarrhea, Denies nausea and Denies vomiting Genitourinary: Genitourinary: Denies hematuria, Denies change in libido, Denies nocturia, Denies genital lesions, Denies flank pain and Denies urinary urgency Musculoskeletal: Musculoskeletal: Denies abnormal gait, Denies back pain, Denies myalgias, Denies arthralgias, Denies joint swelling, Denies muscle weakness and Denies neck pain Integumentary/Breasts: Skin/Breast: Denies swelling, Denies breast pain, Denies breast mass, Denies dry skin, Denies nipple discharge, Denies unusual bruising and Denies jaundice Neurologic: Denies Neuro-related abnormal movements, Denies Abnormal speech present, Denies abnormal gait, Denies behavioral changes, Denies confusion, Denies vertigo, Denies dizziness, Denies syncope, Denies loss of vision, Denies memory loss, Denies convulsions and Denies weakness Psychiatric: Psychiatric: Denies abnormal sleep pattern, Denies behavioral changes, Denies change in libido, Denies confusion, Denies depression, Denies anhedonia and Denies memory loss Endocrine: Endocrine: Reports no additional endocrine complaints, Denies change in libido and Denies fatigue Hematologic/Lymphatic: Hematologic/Lymphatic: Reports no additional hematologic/lymphatic complaints Allergic/Immunologic: Allergic/Immunologic: Reports no additional allergic/immunologic complaints and Denies wheezing [facility] Family History Family History (Updated 04/30/16 @ 23:19 by DOCTOR UNKNOWN) Father Family history of thyroid disease Mother Family history of diabetes mellitus in first degree relative Grandparent Diabetes mellitus Social History Social History Smoking packs per day: 1 Smoking cigarettes per day: 20.0 Years smoked: 20 Smoking pack-years: 20.00 Smoking status: Former smoker Tobacco type: cigarettes Alcohol intake: never Alcohol use details: sometimes it one or two or sometimes it's too many. But monthly only. Substance use: former Living arrangements: with family Spiritual care concerns: No Meds Home Medications and Allergies Home Medications ?Medication ?Instructions ?Recorded ?Confirmed ?Type cyanocobalamin (vitamin B-12) 100 mcg subcut MONTHLY 07/09/25 07/16/25 History 1,000 mcg/mL injection solution dextroamphetamine-amphetamine 20 20 mg PO DAILY 07/09/25 07/16/25 History mg tablet tirzepatide 5 mg/0.5 mL 5 mg subcut WEEKLY 07/09/25 07/16/25 History subcutaneous pen injector (Ninounjaro) Allergies Allergy/AdvReac Type Severity Reaction Status Date / Time No Known Allergies Allergy Verified 07/09/25 11:49 Vital Signs Vital Signs - 24 hr 07/16/25 06:10 Temperature 98.0 F Pulse Rate 87 Respiratory Rate 16 Blood Pressure 104/49 L Pulse Oximetry 100 Oxygen Delivery Room Air Exam Const: General: cooperative, healthy appearing, comfortable and no acute distress Orientation/consciousness: oriented to person, oriented to place and oriented to time HENMT: Head: normal to inspection Ears: external ears normal Face/Nose/Sinus: Normal external nose present and normal facial exam Face and sinus: normal facial exam Eyes: General: appearance normal, both eyes and all related structures Neck: Neck: normal visual inspection, trachea midline and supple Resp: Auscultation: clear to auscultation bilaterally, no crackles, no rales, no rhonchi and no wheezes Cardio: Rate: regular rate Rhythm: regular rhythm Heart sounds: no click, no murmurs and no rubs GI: GI Palp: No abdominal tenderness, No Soft to palpation, No Tenderness to palpation present (GI) and No Palpable mass present Auscultation: normal bowel sounds Skin: General skin exam: normal color and no rashes or lesions noted Neuro: General: oriented to person, oriented to place and oriented to time Extrem: General: normal to inspection, no joint enlargement, no clubbing, cyanosis or edema, no pedal edema and no calf tenderness Psych: Appearance: grossly normal Mental Status: mental status grossly normal Speech and movement: Normal speech and movement present Assessment and Plan Assessment and plan (1) Pelvic pain: Code(s): R10.20 - Pelvic and perineal pain unspecified side Status: Acute Plan This patient is a 40-year-old female with pelvic pain. We agreed to perform diagnostic laparoscopy. She understands risks, benefits, and alternatives. She has completed informed consent process is ready to proceed
--- NOTE | 2025-07-16 07:20 | WPDHPUPDATE1 ---
History and Physical Update Update Date/Time: 07/16/25 07:20 History and Physical has been reviewed, including an updated exam of the patient. There are NO changes in the patient's condition. Risks, benefits, and alternatives have been discussed and questions answered. Patient agrees to proceed with procedure.
[2025-07-16 07:30] LABS: BEDSIDEPREGUCG Negative (Negative)
--- NOTE | 2025-07-16 08:03 | S_PTH ---
PATIENT: Galina Gutierrez LOC: [facility] U#:[id number] AGE/SX: 40/F ROOM: RE07/16/[address]: Dian Lamb MD : [id number] BED: DIS: 07/16/2025 SPEC #: [id number] RECD: 07/16/25 09:49 STATUS: JAIME FLYNN #: [id number] GOPI: 07/16/25 08:[address]: Dain Lamb DEPT: [facility] Surgical RECD BY: Justice Moore ENTERED: 07/16/25 09:50 SP TYPE: Surgical OTHR DR: NET DEVELOPER WITH [facility] PHYSICIAN Tissues: A - Cyst B - Peritoneal Bx Procedures: Hematoxylin and Eosin Stain Gross and Microscopic Level 4
[2025-07-16] MEDS: fentaNYL CITRATE INJ (*CRX) 100 MCG/2 ML VIAL 25 MCG IV PUSH ×2 (10:16→10:19)
--- NOTE | 2025-07-16 10:33 | W.PM.PROC2 ---
Procedure Note - Detailed Date of Procedure 07/16/25 Pre-op Diagnosis Pelvic Pain Post-op Diagnosis Same (Pelvic adhesions, ovarian cysts, endometriosis,) Procedure Performed Diagnostic laparoscopy, adhesiolysis-15 minutes, ovarian cystectomy, radical resection of endometriosis, IUD removal. Surgeon Dain Lamb MD Anesthesia General Indications Pelvic pain Findings Scarring left hemipelvis, possible vesicular endometriosis on left hemipelvis, adhesions between the lateral pelvic sidewall and the uterine cornua. Tense tented bilateral round ligaments, IUD was removed. Left ovarian cyst. Description of Procedure The patient was taken to the operating room. She was prepped and draped in the dorsal lithotomy position after induction general anesthesia. A 5 mm incision was made with a scalpel on the abdominal skin in the left upper quadrant of the abdomen. A 5 mm trocar was inserted into the intra-abdominal cavity under direct visualization the scope. In the same fashion a 5 mm left lower quadrant trocar was inserted and a 5 mm infraumbilical trocar was inserted. A EYAL manipulator was placed in the intrauterine cavity using speculum and tenaculum. It was anteflexed. This revealed the entire posterior cul-de-sac clearly. The posterior cul-de-sac peritoneum on the left side was removed completely With the exception of the deepest cul-de-sac areas Which were fulgurated And the peritoneum over the rectum. From the infundibulopelvic ligament and suspensory ligament ovary laterally to the rectum medially the peritoneum was caudal cephalad dimension was from the pelvic brim down to the uterine arteries Then cervix. This was done with sharp and blunt dissection and cautery. The ureter on the left was dissected out and isolated. Areas in the deepest posterior cul-de-sac were cauterized. Adhesiolysis was performed in the bilateral adnexa anteriorly. Tense adhesions from the lateral pelvic sidewall to the cornu of the uterus were observed and removed. The round ligaments were also transected and cauterized, they were under tension as well. Left ovarian cystectomy was performed using cautery blunt dissection. Cut surface is cauterized. EYAL manipulator was removed and the IUD was removed as well. The pelvis was irrigated. The pneumoperitoneum was reduced. The trocars were removed. Skin was closed with subcuticular 4 micro. The patient's incisions were covered with Dermabond. She was taken recovery room in stable condition. Sponge lap and needle counts were correct x2. Complications No immediate complications Condition Stable Disposition Same day
[2025-07-16] MEDS: oxyCODONE HCL (*CRX) 5 MG TAB IR PO (11:15)
== END 2025-07-16 12:05 | disposition home or self-care (01) ==
PROVIDERS: Visit Provider Obstetrics & Gynecology
PROC: (CPT 49320; principal; 2025-07-16 07:30)
DX: N83.12 Corpus luteum cyst of left ovary (principal); N73.6 Female pelvic peritoneal adhesions (postinfective); G89.18 Other acute postprocedural pain; Z79.85 Long-term (current) use of injectable non-insulin antidiabetic drugs; Z87.891 Personal history of nicotine dependence; Z30.432 Encounter for removal of intrauterine contraceptive device
CPT/HCPCS: 58662; 58301; 88305; A9270; J1100; J1885; J2003; J2250; J2405; J2704; J3010; J7030; J7120